=== PATIENT | female | born 1940 | race Caucasian/White ===

== ENCOUNTER 2018-08-22 18:47 | Emergency (ER) | payer MEDICARE, BC ==
--- NOTE | 2018-08-22 20:04 | CRLCT ---
INDICATION: Seizure. Patient on Coumadin. Previous history of CVA. COMPARISON: None available. TECHNIQUE: CT examination of the head was performed with 3 mm thick axial sections without intravenous contrast. Images were obtained from the vertex of the skull through the skull base, and I examined the images with the brain and bone windows. Please note that all CT scans at this facility use dose modulation, iterative reconstruction, and/or weight-based dosing when appropriate to reduce radiation dose to as low as reasonably achievable. FINDINGS: : There are changes of a large left frontoparietal craniotomy with encephalomalacia of the underlying brain consistent with an old infarct. There is mild dilatation of the ventricles and sulci representing age-appropriate atrophy. There is prominent periventricular and subcortical hypodensity from small vessel ischemic changes consistent with patient`s age. Patchy acute infarcts are seen in the thalami bilaterally. An old lacunar infarct is seen in the left caudate head. The visualized portions of the orbits are normal in appearance. The visualized portions of the paranasal sinuses and mastoids are clear. The osseous structures are normal in their appearance with no sign of abnormality in the skull base or calvarium. IMPRESSION: No sign of acute injury to the brain. No sign of hemorrhage or edema. Encephalomalacic changes in the left frontoparietal cortex and subcortical white matter deep to a large left frontoparietal craniotomy. Mild, age-appropriate atrophy. Prominent small vessel ischemic changes in the subcortical and periventricular white matter. Please note that all CT scans at this facility use dose modulation, iterative reconstruction, and/or weight-based dosing when appropriate to reduce radiation dose to as low as reasonably achievable. Dictated by Per Blackwell MD @ Aug 22 2018 7:58PM Signed by Dr. Per Blackwell @ Aug 22 2018 8:01PM
--- NOTE | 2018-08-22 21:19 | EDM.PDOC ---
ED HPI GENERAL MEDICAL PROBLEM - General Chief Complaint: Neuro Symptoms/Deficits Stated Complaint: MEDICAL VIA NORTH Time Seen by Provider: 08/22/18 19:11 Source of Information: Reports: Family History Limitations: Reports: Physical Impairment - History of Present Illness INITIAL COMMENTS - FREE TEXT/NARRATIVE: This lady arrived by EMS after she had about a 2-1/2 minute episode where she was making strange movements with her mouth and sort of shaking her head from side to side. Her granddaughter witnessed the episode. 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 She's never had seizures before. This lady is on Coumadin. Her daughter says it back when she had her stroke there was actually some bleeding. She did mention something about blood clots but she really didn't know what had happened. Patient had a change in her medication just yesterday her warfarin dose was increased. She was also put on Cipro for urinary tract infection. - Related Data Allergies Allergy/AdvReac Type Severity Reaction Status Date / Time No Known Allergies Allergy Verified 04/21/16 17:17 Home Meds: Home Meds Acetaminophen/HYDROcodone [Alpha 325-5 MG] 1 - 2 tab PO Q4H PRN #50 tablet 05/01 [Rx] Docusate Sodium [Colace] 100 mg PO BID cap 05/01/16 [Rx] Metoclopramide HCl [Reglan] 10 mg PO QID #28 tablet 05/01/16 [Rx] Ondansetron [Zofran ODT] 4 mg PO Q4H PRN #30 tab.dis 05/01/16 [Rx] Warfarin [Coumadin] 2.5 mg PO DAILY #30 tablet 05/01/16 [Rx] Past Medical History Musculoskeletal History: Reports: Arthritis Neurological History: Reports: CVA - Infectious Disease History Infectious Disease History: Reports: Chicken Pox, Measles, Mumps - Past Surgical History GI Surgical History: Reports: Cholecystectomy Female Surgical History: Reports: Hysterectomy Social & Family History - Family History Family Medical History: Noncontributory - Tobacco Use Smoking Status *Q: Never Smoker - Caffeine Use Caffeine Use: Reports: None - Recreational Drug Use Recreational Drug Use: No ED ROS GENERAL - Review of Systems Review Of Systems: Unable To Obtain (Review of systems can't be done on this patient HISTORY is as obtained by family members) - Physical Exam Exam: See Below Exam Limited By: Physical Impairment General Appearance: Alert, WD/WN, No Apparent Distress (This lady is not in any distress she appears to understand what I say she smiles she moves around but she is not able to speak.) Eye Exam: Bilateral Eye: EOMI, PERRL Nose: Normal Inspection Throat/Mouth: Normal Oropharynx Head Exam: Atraumatic Neck: Normal Inspection Respiratory/Chest: Lungs Clear Cardiovascular: Regular Rate, Rhythm, No Murmur GI/Abdominal: Non-Tender Neuro Exam (Abbreviated): Alert, CN II-XII Intact (Cranial nerves appear grossly normal.), Normal Cognition (Difficult to assess her cognition but she does seem to understand what is going on and what is being said.), Sensory/ Motor Deficit (She has no movement of the right upper extremity and just very minimal movement of the right leg and it mostly seems to be at the hip). No: No Motor/Sensory Deficits Extremities: Other (Her daughter says that her right leg seems to be a little bit swollen which they haven't noticed before.) Skin Exam: Warm, Dry Course - Vital Signs Last Recorded V/S: Last Vital Signs Temp 36.4 C 08/22/18 18:59 Pulse 89 08/22/18 20:10 Resp 16 08/22/18 18:59 BP 154/78 H 08/22/18 20:10 Pulse Ox 95 08/22/18 20:10 - Orders/Labs/Meds Labs: Laboratory Tests 08/22/18 08/22/18 08/22/18 Range/Units 19:54 19:54 19:54 WBC 6.7 (4.5-11.0) K/uL RBC 4.64 (3.30-5.50) M/uL Hgb 13.7 (12.0-15.0) g/dL Hct 42.3 (36.0-48.0) % MCV 91 (80-98) fL MCH 30 (27-31) pg MCHC 32 (32-36) % Plt Count 248 (150-400) K/uL Neut % (Auto) 70 H (36-66) % Lymph % (Auto) 16 L (24-44) % Traverse % (Auto) 10 H (2-6) % Eos % (Auto) 3 (2-4) % Baso % (Auto) 1 (0-1) % PT 13.1 H (9.5-12.0) sec INR 1.20 (0.80-1.20) Sodium 142 (140-148) mmol/L Potassium 3.7 (3.6-5.2) mmol/L Chloride 107 (100-108) mmol/L Carbon Dioxide 28 (21-32) mmol/L Anion Gap 7.4 (5.0-14.0) mmol/L BUN 21 H D (7-18) mg/dL Creatinine 0.8 (0.6-1.0) mg/dL Est Cr Clr Drug Dosing 54.67 mL/min Estimated GFR (MDRD) > 60 (>60) Glucose 115 H (74-106) mg/dL Calcium 10.5 H D (8.5-10.1) mg/dL - Radiology Interpretation Free Text/Narrative:: CT scan shows no acute findings there are plenty of findings however related to your previous stroke and encephalomalacia - Re-Assessments/Exams Free Text/Narrative Re-Assessment/Exam: 08/22/18 21:19 Labs were noted. Her INR is only 1.2 bit I come to find that that was actually checked very recently and the medication changed yesterday. Otherwise labs are unremarkable Departure - Departure Time of Disposition: 21:19 Disposition: Home, Self-Care 01 Condition: Fair Clinical Impression: Seizure-like activity - Discharge Information Referrals: PCP,None [Primary Care Provider] - Additional Instructions: It's very possible that she had a small seizure. At this point nothing needs to be done. If she continues to have these episodes then a neurologic evaluation is in order. At this point that would not be appropriate. She does not have any evidence of a blood clot in her right leg. If she continues to have swelling in the right leg discuss that with her doctor. If it' s obviously getting worse and her leg swelling and turning red and firm then that would suggest a venous blood clot and that would constitute an emergency.
--- NOTE | 2018-08-22 22:08 | CRLCR ---
INDICATION: Pelvic and hip pain TECHNIQUE: Pelvis radiograph, Hip radiograph 3 views right COMPARISON: None FINDINGS: Bone: On the frontal view, there is an oblique cortical white line seen obliquely oriented along the base of the lesser trochanter, similar in appearance to the asymptomatic left side. This may be a normal variant or developmental finding. Joint: Small osteophytes are seen surrounding the femoral head, consistent with osteoarthritis. The visualized sacroiliac joints are unremarkable in appearance. The pubic symphysis is normal in appearance. Soft tissue: Unremarkable. Numerous surgical clips are present within the pelvis bilaterally. No radiopaque foreign bodies are seen. IMPRESSION: 1. No acute osseous injuries or abnormalities are noted. Dictated by Rey Hampton MD @ 08/22/2018 10:06:09 PM Dictated by: Rey Hampton MD @ 08/22/2018 22:06:28 (Electronically Signed)
[2018-08-22] MEDS ORDERED: Acetaminophen/HYDROcodone 325-5 MG Tab PO ONE (22:10)
--- NOTE | 2018-08-22 23:59 | CRLUS ---
INDICATION: RT GROIN PAIN AND SWELLING TECHNIQUE: Ultrasound venous duplex right lower extremity. COMPARISON: None. FINDINGS: The right common femoral, superficial femoral, deep femoral, popliteal, posterior tibial, and greater saphenous veins are fully compressible with normal waveforms. The contralateral left common femoral artery is fully compressible with normal waveform. No masses evident. IMPRESSION: Normal ultrasound of the right lower extremity veins. Dictated by: Adalid Wright MD @ 08/22/2018 23:57:23 (Electronically Signed)
[2018-08-23 00:30] VITALS: BP 187/79
== END 2018-08-23 00:31 | disposition home or self-care (01) ==
LOC: JP.ED 18:47
DX: R56.9 Unspecified convulsions (principal); Z79.899 Other long term (current) drug therapy; Z79.01 Long term (current) use of anticoagulants; Z86.73 Personal history of transient ischemic attack (TIA), and cerebral infarction without residual deficits
CPT/HCPCS: 36415; 70450; 73502; 80048; 85025; 85610; 93971; 99285; A9270

== ENCOUNTER 2019-01-01 10:23 | Emergency (ER) | payer MEDICARE, BC ==
[2019-01-01 11:35] VITALS: BP 146/77; PULSE 73
--- NOTE | 2019-01-01 12:23 | EDM.PDOC ---
ED HPI GENERAL MEDICAL PROBLEM - General Chief Complaint: General Stated Complaint: FALL Time Seen by Provider: 01/01/19 11:35 Source of Information: Reports: Patient, Family History Limitations: Reports: No Limitations - History of Present Illness INITIAL COMMENTS - FREE TEXT/NARRATIVE: pt arrived with ahistory of have fall while she was getting her cares. She tried to get up before her caregiver was ready. She slide along the wheel chair with her rt facial area. She did not fall and hit hard. Onset: Today, Sudden Duration: Hour(s): Location: Reports: Head, Face, Upper Extremity, Right Associated Symptoms: Reports: No Other Symptoms - Related Data Allergies Allergy/AdvReac Type Severity Reaction Status Date / Time No Known Allergies Allergy Verified 04/21/16 17:17 Home Meds: Home Meds Docusate Sodium [Colace] 100 mg PO BID cap 05/01/16 [Rx] Lisinopril 5 mg PO DAILY 01/01/19 [History] Warfarin Sodium 10 mg PO ASDIRECTED 01/01/19 [History] Warfarin [Coumadin] 7.5 mg PO ASDIRECTED 01/01/19 [History] Past Medical History HEENT History: Reports: Hard of Hearing Cardiovascular History: Reports: Hypertension Respiratory History: Reports: PE 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: Musculoskeletal History: Reports: Arthritis Neurological History: Reports: CVA Endocrine/Metabolic History: Reports: Obesity/BMI 30+ - Infectious Disease History Infectious Disease History: Reports: Chicken Pox, Measles, Mumps - Past Surgical History GI Surgical History: Reports: Cholecystectomy Female Surgical History: Reports: Hysterectomy Neurological Surgical History: Reports: Other (See Below) Other Neurological Surgeries/Procedures: "brain surg." Social & Family History - Family History Family Medical History: Noncontributory - Tobacco Use Smoking Status *Q: Never Smoker - Caffeine Use Caffeine Use: Reports: Tea - Recreational Drug Use Recreational Drug Use: No ED ROS GENERAL - Review of Systems Review Of Systems: See Below Constitutional: Reports: No Symptoms HEENT: Reports: No Symptoms, Other (pt has a abrasion in rt baptism area. ) Respiratory: Reports: No Symptoms Cardiovascular: Reports: No Symptoms Endocrine: Reports: No Symptoms GI/Abdominal: Reports: No Symptoms : Reports: No Symptoms Musculoskeletal: Reports: No Symptoms Skin: Reports: No Symptoms Neurological: Reports: No Symptoms ED EXAM, GENERAL - Physical Exam Exam: See Below Free Text/Narrative:: pt arrived with a abrasion to her rt baptism area. It looks like she scraped along the wheel chair. She did land on her rt shoulder but she does not appear to have pain. Exam Limited By: No Limitations General Appearance: Alert, Anxious, Other (pupils are equal and reactive. ) Ears: Normal TMs Nose: Normal Inspection Throat/Mouth: Normal Inspection Head: Atraumatic Neck: Normal Inspection Respiratory/Chest: No Respiratory Distress Cardiovascular: Regular Rate, Rhythm GI/Abdominal: Soft, Non-Tender (Female) Exam: Deferred Rectal (Female) Exam: Deferred Back Exam: Normal Inspection Extremities: Normal Inspection Neurological: Alert, Oriented, Normal Cognition Psychiatric: Normal Affect Course - Vital Signs Last Recorded V/S: Last Vital Signs Temp 36.7 C 01/01/19 11:41 Pulse 73 01/01/19 11:41 Resp 17 01/01/19 11:41 BP 146/77 H 01/01/19 11:41 Pulse Ox 93 L 01/01/19 11:41 - Orders/Labs/Meds Labs: Laboratory Tests 01/01/19 Range/Units 11:49 PT 23.5 H (9.5-12.0) sec INR 2.28 H (0.80-1.20) - Re-Assessments/Exams Free Text/Narrative Re-Assessment/Exam: 01/01/19 12:30 inr was ok. She has good range of motion of her rt arm. The area on the rt facial is an abrasion and does not look like a hard contusion. Departure - Departure Time of Disposition: 12:23 Disposition: Home, Self-Care 01 Condition: Fair Clinical Impression: Abrasion of face, Contusion of right shoulder, History of Coumadin therapy - Discharge Information Referrals: PCP,None [Primary Care Provider] - Forms: ED Department Discharge Care Plan Goals: cont same meds and therapy.
== END 2019-01-01 12:39 | disposition home or self-care (01) ==
LOC: JP.ED 10:23
DX: S40.011A Contusion of right shoulder, initial encounter (principal); S00.81XA Abrasion of other part of head, initial encounter; I10 Essential (primary) hypertension; Z79.01 Long term (current) use of anticoagulants; Z79.899 Other long term (current) drug therapy; W05.0XXA Fall from non-moving wheelchair, initial encounter
CPT/HCPCS: 36415; 85610; 99282; 99283

== ENCOUNTER 2019-01-12 15:48 | Emergency (ER) | payer MEDICARE, BC ==
--- NOTE | 2019-01-12 16:16 | EDM.PDOC ---
ED HPI GENERAL MEDICAL PROBLEM - General Chief Complaint: Neurological Problem Stated Complaint: SEIZURE VIA NORTH Time Seen by Provider: 01/12/19 16:00 Source of Information: Reports: Patient, Family, Old Records, RN History Limitations: Reports: Other (Patient has an expressive aphasia from a prior CVA so not able to communicate effectively.) - History of Present Illness INITIAL COMMENTS - FREE TEXT/NARRATIVE: 78 yo female is brought in by EMS after she had an apparent brief seizure. Priscilla is not on any seizure meds. She reportedly had a previous seizure, but is not able to tell me how long ago. Has had a prior CVA, uncertain how long ago, that has left her with R hemiparesis and an expressive aphasia. Priscilla is back to her baseline upon arrival in the ER without any tx. Priscilla with in her wheelchair being pushed by family members when this occurred. Family is considerably behind EMS in their arrival to the ER. Daughter that is the caregiver showed up a few minutes later and says the episode lasted about 3 min and was associated with turning of the head to the left and her head was nodding up and down with her mouth open and her tongue out. There was no tongue biting. The eyes were open, but she cannot tell me if the eyes were deviated. The L arm, which is the one not affected by the stroke, was grabbing in a rhythmic pattern at the daughter's jacket. Priscilla is chronically incontinent of urine so it is not possible to discern if she was incontinent with this apparent seizure. Onset: Today Onset Date: 01/12/19 Onset Time: 15:40 Duration: Other (seconds per EMS) Location: Reports: Other (unsure initially.) - Related Data Allergies Allergy/AdvReac Type Severity Reaction Status Date / Time No Known Allergies Allergy Verified 01/12/19 15:51 Home Meds: Home Meds Docusate Sodium [Colace] 100 mg PO BID cap 05/01/16 [Rx] Lisinopril 5 mg PO DAILY 01/01/19 [History] Warfarin Sodium 10 mg PO ASDIRECTED 01/01/19 [History] Warfarin [Coumadin] 7.5 mg PO ASDIRECTED 01/01/19 [History] levETIRAcetam [Keppra] 500 mg PO BID #30 tab 01/12/19 [Rx] Past Medical History HEENT History: Reports: Hard of Hearing Cardiovascular History: Reports: Hypertension Respiratory History: Reports: PE Gastrointestinal History: Reports: Chronic Constipation Genitourinary History: Reports: Urinary Incontinence 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: Musculoskeletal History: Reports: Arthritis Neurological History: Reports: CVA Endocrine/Metabolic History: Reports: Obesity/BMI 30+ Hematologic History: Reports: Anticoagulation Therapy - Infectious Disease History Infectious Disease History: Reports: Chicken Pox, Measles, Mumps - Past Surgical History Head Surgeries/Procedures: Reports: None HEENT Surgical History: Reports: None Cardiovascular Surgical History: Reports: None Respiratory Surgical History: Reports: None GI Surgical History: Reports: Cholecystectomy Female Surgical History: Reports: Hysterectomy Endocrine Surgical History: Reports: None Neurological Surgical History: Reports: Other (See Below) Other Neurological Surgeries/Procedures: "brain surg." Musculoskeletal Surgical History: Reports: None Dermatological Surgical History: Reports: None Social & Family History - Family History Family Medical History: Noncontributory - Tobacco Use Smoking Status *Q: Never Smoker Second Hand Smoke Exposure: No - Caffeine Use Caffeine Use: Reports: Coffee, Tea - Recreational Drug Use Recreational Drug Use: No ED ROS GENERAL - Review of Systems Review Of Systems: See Below Constitutional: Reports: No Symptoms HEENT: Reports: No Symptoms Respiratory: Reports: No Symptoms Cardiovascular: Reports: No Symptoms Endocrine: Reports: No Symptoms GI/Abdominal: Reports: No Symptoms : Reports: No Symptoms Musculoskeletal: Reports: No Symptoms Skin: Reports: No Symptoms Neurological: Reports: Seizure (about 3 min.) Psychiatric: Reports: No Symptoms - Physical Exam Exam: See Below Exam Limited By: No Limitations General Appearance: Alert, WD/WN, No Apparent Distress Eye Exam: Bilateral Eye: EOMI, Normal Inspection, PERRL Ears: Normal External Exam, Normal Canal, Hearing Grossly Normal, Normal TMs Nose: Normal Inspection, No Blood Throat/Mouth: Normal Inspection, Normal Lips, Normal Oropharynx, No Airway Compromise Head Exam: Atraumatic, Normocephalic Neck: Normal Inspection, Full Range of Motion Respiratory/Chest: No Respiratory Distress, Lungs Clear, Normal Breath Sounds, No Accessory Muscle Use Cardiovascular: Regular Rate, Rhythm, No Edema GI/Abdominal: Normal Bowel Sounds, Soft, Non-Tender Neuro Exam (Abbreviated): Alert, CN II-XII Intact, Other (R hemiparesis, expressive aphasia.) DTR: 0: Patella (L) Back Exam: Normal Inspection Extremities: Normal Inspection, Non-Tender, No Pedal Edema Psychiatric: Normal Affect, Normal Mood Skin Exam: Warm, Dry, Intact, Normal Color, No Rash Course - Vital Signs Last Recorded V/S: Last Vital Signs Temp 36.4 C 01/12/19 15:59 Pulse 76 01/12/19 16:24 Resp 16 01/12/19 15:59 BP 161/94 H 01/12/19 16:24 Pulse Ox 94 L 01/12/19 15:59 - Orders/Labs/Meds Meds: Medications Discontinued Medications Generic Name Dose Route Start Last Admin Trade Name Freq PRN Reason Stop Dose Admin Levetiracetam 1,000 mg 01/12/19 16:51 Keppra PO 01/12/19 16:52 NOW STA Departure - Departure Time of Disposition: 17:05 Disposition: Home, Self-Care 01 Condition: Good Clinical Impression: Seizure - Discharge Information *PRESCRIPTION DRUG MONITORING PROGRAM REVIEWED*: No *COPY OF PRESCRIPTION DRUG MONITORING REPORT IN PATIENT LOUANN: No Prescriptions: levETIRAcetam [Keppra] 500 mg PO BID #30 tab Instructions: Seizure, Adult, [id number] Referrals: PCP,None [Ordering Only Provider] - Forms: ED Department Discharge Additional Instructions: Give Keppra as directed. Recheck with your provider in the clinic to discuss neurological referral and/or EEG testing. Return if needed.
[2019-01-12 16:25] VITALS: BP 161/94; PULSE 76
[2019-01-12] MEDS ORDERED: levETIRAcetam 250 MG Tab PO STA (16:51)
== END 2019-01-12 17:14 | disposition home or self-care (01) ==
LOC: JP.ED 15:48
DX: R56.9 Unspecified convulsions (principal); E66.9 Obesity, unspecified; I10 Essential (primary) hypertension; Z68.37 Body mass index [BMI] 37.0-37.9, adult; Z79.01 Long term (current) use of anticoagulants
CPT/HCPCS: 99283; 99284; A9270